=== PATIENT | male | born 2000 | race Caucasian/White ===

== ENCOUNTER 2020-06-10 19:13 | Emergency (ER) | payer SELFPAY ==
[2020-06-10] MEDS ORDERED: ACETAMINOPHEN 325 MG TABLET PO ONE (19:37)
[2020-06-10] MEDS ORDERED: NORMAL SALINE 1000 ML 1,000 ML IV ONE (19:39)
--- NOTE | 2020-06-10 19:43 | ER Document Report ---
ED Medical Screen (RME) - General Chief Complaint: Chest Pain Stated Complaint: CHEST PAIN,FEVER,MUSCLE PAIN Time Seen by Provider: 06/10/20 19:30 Mode of Arrival: Ambulatory Information source: Patient Notes: 20-year-old male presented to ED for complaint of chest pain. He states the last 2 days his chest is felt very tight like he cannot get a breath. He states sometimes he will have it for 2 or 3 days and you crack his back and it will feel better but today it did not get better. He does have a temperature of 101.5 at this time. He states he also has lower back pain. He states he felt fine this morning then developed a headache but has had the chest pain with shortness of breath off and on for 2 days. He states he also has some body aches to his legs. He states he does use a vapor cigarette he occasionally drinks and has not used any marijuana for at least a month. I have ordered him Tylenol and a septic work-up due to the fact that he had a temperature of 110 and a pulse of 101.5 with chest pain. He states he does have a history of ADHD and as a baby had his left arm fractured with surgery he also had a dilatation of the urethra and he was found on the toilet when he was a little he thinks he had to have CPR at that time. Patient is alert oriented respirations regular nonlabored speaking in full sentences. He states he does not have covered even though he has body aches temperature and chest pain. I have spoken to the charge nurse about getting him a bed on the [facility]. I have greeted and performed a rapid initial assessment of this patient. A comprehensive ED assessment and evaluation of the patient, analysis of test results and completion of medical decision making process will be conducted by an additional ED providers. - Related Data Allergies/Adverse Reactions: No Known Allergies Allergy (Unverified 06/10/20 19:36) Past Medical History - Social History Chew tobacco use (# tins/day): No Frequency of alcohol use: Occasional Drug Abuse: Marijuana Physical Exam - Vital signs Vitals: Temp Pulse Resp BP Pulse Ox 101.5 F H 110 H 18 122/75 99 06/10/20 19:28 06/10/20 19:28 06/10/20 19:28 06/10/20 19:28 06/10/20 19:28 Course - Vital Signs Vital signs: Temp Pulse Resp BP Pulse Ox 101.5 F H 110 H 18 122/75 99 06/10/20 19:28 06/10/20 19:28 06/10/20 19:28 06/10/20 19:28 06/10/20 19:28
[2020-06-10 21:13] LABS: VENOUS BLOOD BASE EXCESS 0.2 mmol/L; VENOUS BLOOD HCO3 25.1 mmol/L (20-32); VENOUS BLOOD PCO2 41.5 mmHg (35-63); VENOUS BLOOD PH 7.4 (7.30-7.42)
[2020-06-10 21:15] LABS: ABSOLUTE LYMPHOCYTES (AUTO) 1.2 10^3/uL (0.5-4.7); ABSOLUTE MONOCYTES (AUTO) 1.2 10^3/uL (0.1-1.4); ABSOLUTE NEUT (AUTO) 10.2 10^3/uL (1.7-8.2); BASOPHILS % (AUTO) 0.1 % (0-2); EOSINOPHILS % (AUTO) 0.1 % (0-6); HEMATOCRIT 46.4 % (37.9-51.0); HEMOGLOBIN 15.8 g/dL (13.5-17.0); LYMPHOCYTES % (AUTO) 9.2 % (13-45); MEAN CORPUSCULAR VOLUME 85 fl (80-97); MONOCYTES % (AUTO) 9.6 % (3-13); PLATELET COUNT 212 10^3/uL (150-450); RED BLOOD COUNT 5.44 10^6/uL (4.35-5.55); TOTAL CELLS COUNTED % (AUTO) 100 %; WHITE BLOOD COUNT 12.5 10^3/uL (4.0-10.5)
--- NOTE | 2020-06-10 21:19 | ER Document Report ---
ED General - General Chief Complaint: Chest Pain Stated Complaint: CHEST PAIN,FEVER,MUSCLE PAIN Time Seen by Provider: 06/10/20 19:30 Mode of Arrival: Ambulatory - [facility] Context: This is a 20-year-old male with no prior significant medical history presenting to the emergency department complaining of 2 days of chest pain and myalgias. Patient states at times he feels tightness chest and feels better when he stretches and "pops" is sternum. Patient localizes the chest pain to the midsternal region. Patient denies cough. Patient states that symptoms are worse if he sneezes. Patient states he had some nasal congestion past couple of days but denies loss of sense of smell or sense of taste. Patient denies known contact with patients under investigation for COVID or COVID positive persons. Patient states he vapes but has not done so in the past couple of days just because of his chest pain. Patient states he is also having leg cramps for the past 2 days that feel "like a restless leg syndrome". - Related Data Allergies/Adverse Reactions: No Known Allergies Allergy (Unverified 06/10/20 19:36) Past Medical History - General Information source: Patient - Social History Smoking Status: Former Smoker - Patient states he has been vaping but has not done so in the past 2 days. Chew tobacco use (# tins/day): No Frequency of alcohol use: Occasional Drug Abuse: Marijuana Family History: Reviewed & Not Pertinent Patient has homicidal ideation: No - Medical History Medical History: Other - ADHD, migraines Review of Systems - Review of Systems Constitutional: No symptoms reported EENT: No symptoms reported Cardiovascular: Chest pain Respiratory: No symptoms reported Gastrointestinal: No symptoms reported Genitourinary: No symptoms reported Male Genitourinary: No symptoms reported Musculoskeletal: Other - Leg myalgias Skin: No symptoms reported Hematologic/Lymphatic: No symptoms reported Neurological/Psychological: No symptoms reported -: Yes All other systems reviewed and negative Physical Exam - Vital signs Vitals: Temp Pulse Resp BP Pulse Ox 101.5 F H 110 H 18 122/75 99 06/10/20 19:28 06/10/20 19:28 06/10/20 19:28 06/10/20 19:28 06/10/20 19:28 - Notes Notes: CONSTITUTIONAL [Vital signs reviewed, Patient appears comfortable, Alert and oriented X 3, Normal stature.] HEAD [Atraumatic, Normocephalic.] EYES [Eyes are normal to inspection, No discharge from eyes, Extraocular muscles in tact, Sclera are normal, Conjunctiva are normal.]] NECK [Normal ROM, No jugular venous distention, No meningeal signs, no carotid bruit.] RESPIRATORY CHEST [Chest is nontender, Breath sounds normal, No respiratory distress.] CARDIOVASCULAR [RRR, No murmurs, Normal S1 S2, No rub, No gallop.] ABDOMEN [Abdomen is nontender, No pulsatile masses, No other masses, Bowel sounds normal, No distension, No peritoneal signs, No hernias.] BACK [There is no CVA Tenderness, There is no tenderness to palpation, Normal inspection.] UPPER EXTREMITY [Inspection normal, No cyanosis, No clubbing, No edema, 2+ radial pulses.] LOWER EXTREMITY [Inspection normal, No cyanosis, No clubbing, No edema, No calf tenderness, 2+ femoral pulses.] NEURO [No focal motor deficits, No focal sensory deficits, Speech normal.] SKIN [Skin is warm, Skin is dry, Skin is normal color.] LYMPHATIC [No adenopathy in neck.] PSYCHIATRIC [Normal affect. ] Course - Re-evaluation Re-evalutation: 06/10/20 21:22 Differential diagnosis: URI, pneumonia, COVID, influenza, viral syndrome. 06/10/20 22:44 Results of ED MSE discussed with patient. There appears to be no evidence of bacterial pneumonia or influenza. Patient is resting in bed and is in no acute distress. All questions were answered prior to discharge. Precautions for COVID P URI discussed with patient. Patient informed that he would be notified by the health department of his results in the coming week. Emergency signs and symptoms, reasons to return to the emergency department discussed with patient. Medical decision making: Patient currently has a nontoxic appearance and has no evidence of a emergency medical condition at this point. Patient will be discharged home with precautions and instructions on using Motrin and Tylenol for myalgias and fever as well as pain. Patient may have a viral syndrome or perhaps COVID but at this time patient's exact etiology of fever and symptoms is unknown. Given the patient's appearance and lack of comorbidities, this MD feels that symptomatic care is reasonable. - Vital Signs Vital signs: Temp Pulse Resp BP Pulse Ox 98.9 F 110 H 17 128/79 H 98 06/10/20 21:43 06/10/20 19:28 06/10/20 22:00 06/10/20 21:01 06/10/20 22:00 - Laboratory Result Diagrams: 06/10/20 20:52 06/10/20 20:52 Laboratory results interpreted by me: 06/10/20 20:52 WBC 12.5 H Lymph % (Auto) 9.2 L Absolute Neuts (auto) 10.2 H Seg Neutrophils % 81.0 H - Diagnostic Test Radiology reviewed: Reports reviewed - EKG Interpretation by Me Additional EKG results interpreted by me: 06/10/20 21:24 EKG obtained on 06/10/2020 at 1923 hrs. was interpreted by this MD. Findings sinus tachycardia, heart rate 101, normal axis, AR interval within normal limits, P waves preceding QRS complexes, QRS complexes appear narrow, there are no obvious patterns of ST segment elevation or depression present to suggest acute myocardial ischemia or infarction. Impression: Sinus tachycardia with nonspecific ST segments. There is no prior EKG available for comparison. Discharge - Discharge Clinical Impression: Myalgia, Person under investigation for COVID-19 Chest pain Qualifiers: Chest pain type: unspecified Qualified Code(s): R07.9 - Chest pain, unspecified Fever Qualifiers: Fever type: unspecified Qualified Code(s): R50.9 - Fever, unspecified Condition: Stable Disposition: HOME, SELF-CARE Instructions: Acetaminophen, Use of [id number] Ibuprofen ([facility]), COVID-19 Guidance for Persons Under Investigation Additional Instructions: Return to the Emergency Department without delay if any worse. Follow the instructions given to you about precautions for possible COVID infection. The health department will contact you in the coming week with the results of your test. HOME CARE INSTRUCTIONS & INFORMATION: Thank you for choosing us for your medical needs. We hope you're satisfied with the care you received. After you leave, you must properly care for your problem and, at the same time, observe its progress. Any condition can change. Some illnesses can change rapidly over hours or days. If your condition worsens, return to the Emergency Department or see your physician promptly. ABOUT YOUR X-RAYS AND EKG'S: If you had an EKG or X-rays taken, they have been read by the Emergency Physician. The X-rays and EKG's will also be read by a Radiologist or Battery Technician within 24 hours. If discrepancies are noted, you will be notified by telephone. Please be certain the ED has a correct telephone number & address where you can be reached. Also, realize that some fractures or abnormalities do not show up on initial X-rays. If your symptoms continue, see your physician. ABOUT YOUR LABORATORY TEST: If you had laboratory tests, the results have been reviewed by the Emergency Physician. Some test results (for example cultures) may not be available for several days. You will be contacted if any test result shows you need additional treatment. Please be certain the ED has a correct telephone number and address where you can be reached. ABOUT YOUR MEDICATIONS: You will receive instructions on how to take your medicine on the prescription label you receive. Additional information may be provided by the Pharmacy. If you have questions afterwards, call the ED for clarification or further instructions. Some prescribed medications may cause drowsiness. Do not perform tasks such as driving a car or operating machinery without consulting your Pharmacist. If you feel you need a refill of pain medication, your condition will need re-evaluation. Please do not call for a re fill of any medication. ABOUT YOUR SIGNATURE: Signature of this document acknowledges to followin. Understanding that you received emergency treatment and that you may be released before al medical problems are known or treated. Please be certain the ED has a correct phone number & address where you can be reached. 2. Acknowledgement that you will arrange for follow-up care as recommended. 3. Authorization for the Emergency Physician to provide information to your follow-up Physician in order to maximize your care. AT ANY TIME, IF YOUR SYMPTOMS CHANGE SIGNIFICANTLY OR WORSEN OR YOU DEVELOP NEW SYMPTOMS, RETURN TO THE EMERGENCY DEPARTMENT IMMEDIATELY FOR RE-EVALUATION. OUR GOAL IS TO PROVIDE EXCELLENT MEDICAL CARE! WE HOPE THAT WE HAVE MET YOUR EXPECTATIONS DURING YOUR EMERGENCY DEPARTMENT VISIT AND THAT YOU FEEL YOU HAVE RECEIVED EXCELLENT CARE! Fever Fever is the body's reaction to infection. Fever can also occur with illnesses that create fever-producing substances in the body. By itself, fever is not harmful. It helps the body fight invading germs. We are more concerned with: (1) What's causing the fever? (2) How can we keep you more comfortable until the fever goes away? Early in an illness, symptoms are often so vague that a diagnosis can't be made. If the doctor hasn't identified a clear cause for your fever, you will probably develop new symptoms within the next two days. Contact the doctor if you develop severe worsening headache, rash, chest pain, cough with yellow or green sputum, difficulty breathing, abdominal pain, or other new symptoms. There is no reason to treat a fever if you're comfortable. If the fever is causing aches, headache, and fatigue, you can treat it with ibuprofen (Advil, Nuprin, etc) or acetaminophen (Tylenol). Follow the directions on the bottle. Get plenty of liquids (three quarts per day). Rest. Physical work or sports will raise the temperature higher and make you feel much worse. Dress lightly. If you're chilling, this means the temperature is trying to go higher. Take ibuprofen or acetaminophen. When you feel sweaty and "feverish" the temperature is coming down. If the fever doesn't go away within two days or if you become more ill, call the doctor or return at once for re-examination. Referrals: POP HANCOCK MD [HONORARY] - Follow up as needed
[2020-06-10 21:20] LABS: INTERNATIONAL RATION (INR) 1.17; PROTHROMBIN TIME 15.1 SEC (11.4-15.4)
[2020-06-10 21:27] LABS: ALBUMIN 4.9 g/dL (3.5-5.0); ALKALINE PHOSPHATASE 102 U/L (38-126); ANION GAP 10 (5-19); ASPARTATE AMINO TRANSFERASE 27 U/L (17-59); BILIRUBIN,DIRECT 0.3 mg/dL (0.0-0.4); BLOOD UREA NITROGEN 14 mg/dL (7-20); CALCIUM 9.9 mg/dL (8.4-10.2); CARBON DIOXIDE 28 mmol/L (22-30); CHLORIDE 101 mmol/L (98-107); GLUCOSE 101 mg/dL (75-110); POTASSIUM 4.5 mmol/L (3.6-5.0); TOTAL PROTEIN 7.6 g/dL (6.3-8.2)
--- NOTE | 2020-06-10 21:53 | RADIOLOGY REPORT (SQ) ---
CLINICAL INDICATION: Chest pain fever 101.5. TECHNIQUE: A single portable AP view was obtained of the chest at 2122 hours. COMPARISON: None. FINDINGS: The cardiomediastinal silhouette is normal. The lungs are grossly clear. No evidence of effusion or pneumothorax. The visualized bones are unremarkable. IMPRESSION: No evidence of active intrathoracic disease.
[2020-06-10 22:17] LABS: A TYPE INFLUENZA AG NEGATIVE (NEGATIVE); B INFLUENZA AG NEGATIVE (NEGATIVE)
[2020-06-10 23:18] VITALS: BP 122/77
--- NOTE | 2020-06-13 02:19 | EKG REPORT ---
SEVERITY:- OTHERWISE NORMAL ECG - SINUS TACHYCARDIA : Confirmed by: Suman Ogden MD 13-Jun-2020 02:18:56
== END 2020-06-10 23:10 | disposition home or self-care (01) ==
LOC: ER 19:13
DX: R07.9 Chest pain, unspecified (principal); R50.9 Fever, unspecified; R25.2 Cramp and spasm; M79.18 Myalgia, other site; Z20.828 Contact with and (suspected) exposure to other viral communicable diseases; R09.81 Nasal congestion; F17.290 Nicotine dependence, other tobacco product, uncomplicated; F12.10 Cannabis abuse, uncomplicated; R00.0 Tachycardia, unspecified
CPT/HCPCS: 93005; 99285; 96360; 36415; 87040; 83605; 85025; 85610; 87635; 80053; 82803; 87804; 71045; 93010; J7030; C9803